=== PATIENT | female | born 1995 | race Caucasian/White ===

== ENCOUNTER 2017-10-07 07:25 | Emergency (ER) | payer SELFPAY ==
[2017-10-07 07:55] VITALS: BP 148/91
--- NOTE | 2017-10-07 08:38 | UC ---
Dizzy HPI HPI Summary: 22 yo female with intermittent vertigo x 4 days worse when supine increased with sudden change head position no KAHN no earache no sinus pressure or pain no ring or roaring in ears abd pain n/v only when supine normal appetite no UTI symptoms - History Of Current Complaint Chief Complaint: UCGI Stated Complaint: UPSET STOMACH/NAUSEA Time Seen by Provider: 10/07/17 07:51 Hx Obtained From: Patient Hx Last Menstrual Period: 2-3 weeks Onset/Duration: Sudden Onset, Lasting Days Timing: Minutes Severity Initially: Moderate Severity Currently: None Pain Intensity: 0 Pain Scale Used: 0-10 Numeric Character: Room Spinning Aggravating Factor(s): Position Change - worse when supine, Change In Head Position Alleviating Factor(s): Other - sitting/standing and staying still Associated Signs And Symptoms: Positive: Nausea, Vomiting - Allergies/Home Medications Allergies/Adverse Reactions: Allergies Allergy/AdvReac Type Severity Reaction Status Date / Time environmental Allergy Sneezing Uncoded 10/07/17 07:55 Home Medications: Home Medications Etonogestrel [Nexplanon] 68 mg IMPLANT DAILY 10/07/17 [History Confirmed ] White Allergy Tab 1 tab PO DAILY PRN 10/07/17 [History Confirmed 10/07/17] PMH/Surg Hx/FS Hx/Imm Hx Previously Healthy: Yes - Surgical History Surgical History: Yes Surgery Procedure, Year, and Place: wisdom teeth - Family History Known Family History: Positive: Unknown - state she does not know any of her FHx - Social History Alcohol Use: None Substance Use Type: None Smoking Status (MU): Never Smoked Tobacco Review of Systems Constitutional: Negative Skin: Negative Eyes: Negative ENT: Negative Respiratory: Negative Cardiovascular: Negative Gastrointestinal: Vomiting, Nausea Genitourinary: Negative Motor: Negative Neurovascular: Negative Musculoskeletal: Negative Neurological: Other - vertigo Psychological: Negative Is Patient Immunocompromised?: No All Other Systems Reviewed And Are Negative: Yes Physical Exam Triage Information Reviewed: Yes Appearance: Well-Appearing, No Pain Distress, Well-Nourished Vital Signs: Initial Vital Signs Temp 99.8 F 10/07/17 07:42 Pulse 107 10/07/17 07:42 Resp 24 10/07/17 07:42 BP 148/91 10/07/17 07:42 Pulse Ox 100 10/07/17 07:42 Vital Signs Reviewed: Yes Eyes: Positive: Conjunctiva Clear ENT: Positive: Hearing grossly normal, Pharynx normal, TMs normal, Uvula midline. Negative: Nasal congestion, Nasal drainage, Tonsillar swelling, Tonsillar exudate, Trismus, Muffled voice, Hoarse voice, Sinus tenderness Neck: Positive: Supple, Nontender, No Lymphadenopathy Respiratory: Positive: Lungs clear, Normal breath sounds, No respiratory distress, No accessory muscle use Cardiovascular: Positive: RRR, No Murmur Abdomen Description: Positive: Nontender, No Organomegaly Bowel Sounds: Positive: Present Musculoskeletal: Positive: ROM Intact, No Edema Neurological: Positive: Alert Psychological Exam: Normal Skin Exam: Normal Diagnostics - Laboratory Diagnostic Studies Completed/Ordered: UA ++++ ketones. UHCG (-) Dizzy Course/Dx - Course Course Of Treatment: advised not to drive until better - Differential Dx/Diagnosis Provider Diagnoses: benign paroxysmal postional vertigo Discharge - Sign-Out/Discharge Documenting (check all that apply): Discharge/Admit/Transfer - Discharge Plan Condition: Stable Disposition: HOME Prescriptions: Meclizine TAB* [Antivert TAB*] 25 mg PO QID #20 tab Patient Education Materials: Benign Paroxysmal Positional Vertigo (ED) Forms: *Work Release Referrals: Non Staff,Doctor [Primary Care Provider] - - Billing Disposition and Condition Condition: STABLE Disposition: HOME
== END 2017-10-07 09:04 | disposition home or self-care (01) ==
LOC: UCCORT 07:25
DX: H81.10 Benign paroxysmal vertigo, unspecified ear (principal); R11.2 Nausea with vomiting, unspecified; Z91.09 Other allergy status, other than to drugs and biological substances
CPT/HCPCS: 81003; 84702; 99202; G0463

== ENCOUNTER 2017-12-07 13:14 | Emergency (ER) | payer SELFPAY ==
[2017-12-07 13:55] VITALS: BP 99/72
--- NOTE | 2017-12-07 14:00 | UC ---
Skin Complaint HPI - HPI Summary HPI Summary: 22 y/o female presents to the urgent care c/o waking up yesterday morning w/ bites all over her left leg. Rash itches a lot. Pt denies being outside on Wednesday12/05/2017 and can't recall being bit by an insect. Her boy friend sleeps with her and he doesn't have any rash. Pt denies using new detergents or body lotions or taken a new medication. She also denies pain, fever, SOB, chest pain , abdominal pain, N/V/D. She has not taking anything to alleviate symptoms. - History of Current Complaint Chief Complaint: UCRash Time Seen by Provider: 12/07/17 13:59 Stated Complaint: SKIN COMPLAINT Hx Obtained From: Patient Hx Last Menstrual Period: 2-3 weeks ?: No Onset/Duration: Sudden Onset, Lasting Days - 2 days, Still Present Skin Exposure Onset/Duration: Days Ago - 2 days Timing: Constant Onset Severity: Moderate Current Severity: Moderate Pain Intensity: 0 Pain Scale Used: 0-10 Numeric Location: Discrete - left leg Character: Pruritus, Redness Aggravating Factor(s): Touch Alleviating Factor(s): Nothing Associated Signs & Symptoms: Positive: Rash. Negative: Difficulty Breathing, Fever, Chills, Hoarseness, Throat Tightening, Drainage, Tenderness Related History: Possible Reaction to: Insect - Allergy/Home Medications Allergies/Adverse Reactions: Allergies Allergy/AdvReac Type Severity Reaction Status Date / Time environmental Allergy Sneezing Uncoded 12/07/17 13:53 Review of Systems Constitutional: Negative Skin: Rash - left leg w/ a lot of itchiness Eyes: Negative ENT: Negative Respiratory: Negative Cardiovascular: Negative Gastrointestinal: Negative Genitourinary: Negative Motor: Negative Neurovascular: Negative Musculoskeletal: Negative Neurological: Negative Psychological: Negative Is Patient Immunocompromised?: No All Other Systems Reviewed And Are Negative: Yes PMH/Surg Hx/FS Hx/Imm Hx Previously Healthy: Yes - Pt denies PMHX - Surgical History Surgical History: Yes Surgery Procedure, Year, and Place: wisdom teeth - Family History Known Family History: Positive: Unknown - Pt denies FMHX - Social History Occupation: Employed Full-time Lives: With Family Alcohol Use: None Substance Use Type: None Smoking Status (MU): Never Smoked Tobacco - Immunization History Vaccination Up to Date: Yes Physical Exam - Summary Physical Exam Summary: Vital Signs Reviewed: Yes General: well developed, well nourished female sitting in the examining table w/ o any apparent distress. Eyes: Positive: Conjunctiva Clear - PERRLA, EOMI ENT: Positive: Normal ENT inspection, Hearing grossly normal, Pharynx normal, TMs normal Neck: Positive: Supple, Nontender, No Lymphadenopathy Respiratory: Positive: Chest nontender, Lungs clear, Normal breath sounds Cardiovascular: Positive: RRR, No Murmur, Pulses Normal Abdomen Description: Positive: Nontender, No Organomegaly, Soft. Negative: CVA Tenderness (R), CVA Tenderness (L) Bowel Sounds: Positive: Present Musculoskeletal: Positive: Strength Intact, ROM Intact, No Edema Neurological Exam: Normal Psychological Exam: Normal Skin: Positive: rashes - left leg w/ scattered erythematous papules about 3mm in size w/ signs of excoriations.non tender to palpation, no discharge observed Triage Information Reviewed: Yes Vital Signs: Initial Vital Signs Temp 98.3 F 12/07/17 13:50 Pulse 66 12/07/17 13:50 Resp 14 12/07/17 13:50 BP 99/72 12/07/17 13:50 Pulse Ox 100 12/07/17 13:50 Course/Dx - Course Course Of Treatment: 22 y/o female presents to the urgent care c/o waking up yesterday morning w/ bites all over her left leg. Rash itches a lot. Pt denies being outside on Wednesday12/05/2017 and can't recall being bit by an insect. Her boy friend sleeps with her and he doesn't have any rash. Pt denies using new detergents or body lotions or taken a new medication. She also denies pain, fever, SOB, chest pain, abdominal pain, N/V/D. She has not taking anything to alleviate symptoms.Hx obtained.Pt with a pruritic rash on examination, most likely insect bites. Pt Rx Hydrocortisone , Benadryl PO and Caladryl topical lotion to alleviate symptoms. If not resolution of symptoms in 3 days to f/u w/ PCP for further evaluation. Pt understood and agreed with plan of care. - Differential Diagnoses - Skin Complaint Differential Diagnoses: Abscess, Allergic Reaction, Contact Dermatitis, Eczema, Local Allergic Reaction, Poison [place], Poison [place], Scabies, Tick Born Illness, Urticaria - Diagnoses Provider Diagnoses: 1- Rash probably due to insect bites Discharge - Sign-Out/Discharge Documenting (check all that apply): Patient Departure - D/C home - Discharge Plan Condition: Stable Disposition: HOME Prescriptions: Calamine/Pramoxine LOTION* [Caladryl LOTION*] 1 applic .SEE ORDER BID #1 btl diPHENhydraMINE PO* [Benadryl PO 25 MG TAB*] 25 mg PO TID PRN #21 tab PRN Reason: pruritus Hydrocortisone 1% CREAM* [Hytone Cream 1%*] 1 applic TOPICAL BID #1 tube Patient Education Materials: Insect Bite or Sting (ED) Forms: *Work Release Referrals: [facility] [Outside] - If Needed Additional Instructions: 1- Use the hydrocortisone topical cream and Caladryl topical lotion as directed to alleviate itching. Avoid sun exposure. 2-Take Benadryl PO to alleviate itchiness. 3-If symptoms do not improve or worsen please f/u with your PCP in 3 days or return to the urgent care for further evaluation and treatment. - Billing Disposition and Condition Condition: STABLE Disposition: Home
== END 2017-12-07 14:21 | disposition home or self-care (01) ==
LOC: UCCORT 13:14
DX: R21 Rash and other nonspecific skin eruption (principal)
CPT/HCPCS: 99212; G0463

== ENCOUNTER 2018-07-07 07:55 | Emergency (ER) | payer OTHER ==
[2018-07-07 08:21] VITALS: BP 127/77
--- NOTE | 2018-07-07 08:34 | UC ---
Throat Pain/Nasal Jean Paul HPI - HPI Summary HPI Summary: sore throat x 3 days nasal congestion , productive cough with yellow sputum + fever, chills, body and joint pain - History of Current Complaint Chief Complaint: UCGeneralIllness Stated Complaint: ST,KAHN,ACHES Time Seen by Provider: 07/07/18 08:13 Hx Obtained From: Patient Hx Last Menstrual Period: 07/06/18 ?: No Onset/Duration: Gradual Onset, Lasting Days - 3, Still Present Severity: Moderate Pain Intensity: 7 Cough: Sputum Appears - yellow Associated Signs & Symptoms: Positive: Nasal Discharge, Fever. Negative: Dysphagia, Wheezing, Hoarseness, Sinus Discomfort, Vomiting, Rash - Allergies/Home Medications Allergies/Adverse Reactions: Allergies Allergy/AdvReac Type Severity Reaction Status Date / Time environmental Allergy Sneezing Uncoded 07/07/18 08:17 PMH/Surg Hx/FS Hx/Imm Hx Previously Healthy: Yes - Surgical History Surgical History: Yes Surgery Procedure, Year, and Place: wisdom teeth - Family History Known Family History: Positive: Unknown - Pt denies FMHX Negative: Diabetes - Social History Alcohol Use: None Substance Use Type: None Smoking Status (MU): Never Smoked Tobacco - Immunization History Vaccination Up to Date: Yes Review of Systems All Other Systems Reviewed And Are Negative: Yes Constitutional: Positive: Fever, Chills, Fatigue Skin: Positive: Negative Eyes: Positive: Negative ENT: Positive: Sore Throat Respiratory: Positive: Cough Cardiovascular: Positive: Negative Gastrointestinal: Positive: Negative Is Patient Immunocompromised?: No Physical Exam Triage Information Reviewed: Yes Appearance: Well-Appearing, No Pain Distress, Well-Nourished Vital Signs: Initial Vital Signs Temp 99.0 F 07/07/18 08:17 Pulse 114 07/07/18 08:17 Resp 18 07/07/18 08:17 BP 127/77 07/07/18 08:17 Pulse Ox 100 07/07/18 08:17 Vital Signs Reviewed: Yes Eye Exam: Normal Eyes: Positive: Conjunctiva Clear ENT: Positive: Normal ENT inspection, Hearing grossly normal, Pharynx normal, Nasal congestion. Negative: Pharyngeal erythema Neck: Positive: Supple, Nontender, No Lymphadenopathy Respiratory: Positive: Chest non-tender, Lungs clear, Normal breath sounds Cardiovascular: Positive: Tachycardia Abdominal Exam: Normal Abdomen Description: Positive: Nontender, Soft Bowel Sounds: Positive: Present Throat Pain/Nasal Course/Dx - Differential Dx/Diagnosis Provider Diagnosis: URI (upper respiratory infection) Discharge - Sign-Out/Discharge Documenting (check all that apply): Patient Departure All imaging exams completed and their final reports reviewed: No Studies - Discharge Plan Condition: Stable Disposition: HOME Patient Education Materials: Upper Respiratory Infection (DC) Forms: *Work Release Referrals: No Primary Care Phys,NOPCP [Primary Care Provider] - If Needed - Billing Disposition and Condition Condition: STABLE Disposition: Home
[2018-07-07 08:39] LABS: Influenza A Molecular NEGATIVE (Negative); Influenza B Molecular NEGATIVE (Negative)
== END 2018-07-07 08:45 | disposition home or self-care (01) ==
LOC: UCCORT 07:55
DX: J06.9 Acute upper respiratory infection, unspecified (principal)
CPT/HCPCS: 99211; G0463

== ENCOUNTER 2018-08-08 19:22 | Emergency (ER) | payer OTHER ==
[2018-08-08 20:23] VITALS: BP 111/71
--- NOTE | 2018-08-08 20:48 | UC ---
Throat Pain/Nasal Jean Paul HPI - HPI Summary HPI Summary: Sore throat for about 3 days. Denies any fever or chills. Patient's requesting a work note to go back to work tomorrow. - History of Current Complaint Chief Complaint: UCGeneralIllness Stated Complaint: SORE THROAT Time Seen by Provider: 08/08/18 20:13 Hx Obtained From: Patient Hx Last Menstrual Period: 07/13/18 ?: No Onset/Duration: Gradual Onset Severity: Mild Pain Intensity: 3 - Allergies/Home Medications Allergies/Adverse Reactions: Allergies Allergy/AdvReac Type Severity Reaction Status Date / Time environmental Allergy Sneezing Uncoded 08/08/18 20:18 Home Medications: Home Medications NK [No Home Medications Reported] 08/08/18 [History Confirmed 08/08/18] PMH/Surg Hx/FS Hx/Imm Hx Previously Healthy: Yes - Surgical History Surgical History: Yes Surgery Procedure, Year, and Place: wisdom teeth - Family History Known Family History: Positive: Unknown - Pt denies FMHX Negative: Diabetes - Social History Alcohol Use: Occasionally Substance Use Type: None Smoking Status (MU): Never Smoked Tobacco - Immunization History Vaccination Up to Date: Yes Review of Systems All Other Systems Reviewed And Are Negative: Yes ENT: Positive: Sore Throat Psychological: Positive: Negative Is Patient Immunocompromised?: No Physical Exam Triage Information Reviewed: Yes Appearance: Well-Appearing, No Pain Distress, Well-Nourished Vital Signs: Initial Vital Signs Temp 98.4 F 08/08/18 20:18 Pulse 85 08/08/18 20:18 Resp 22 08/08/18 20:18 BP 111/71 08/08/18 20:18 Pulse Ox 100 08/08/18 20:18 Vital Signs Reviewed: Yes Eye Exam: Normal ENT Exam: Normal ENT: Positive: Hearing grossly normal, Pharynx normal, Nasal congestion, TMs normal, Uvula midline. Negative: Trismus, Muffled voice, Hoarse voice Neck exam: Normal Respiratory Exam: Normal Cardiovascular Exam: Normal Abdominal Exam: Normal Bowel Sounds: Positive: Present Musculoskeletal Exam: Normal Neurological Exam: Normal Psychological Exam: Normal Skin Exam: Normal Throat Pain/Nasal Course/Dx - Course Course Of Treatment: Patient has been comfortable here, rapid strep test was negative. Is given a note for work. - Differential Dx/Diagnosis Differential Diagnosis/HQI/PQRI: Pharyngitis Provider Diagnosis: Pharyngitis Discharge - Sign-Out/Discharge Documenting (check all that apply): Patient Departure All imaging exams completed and their final reports reviewed: No Studies - Discharge Plan Condition: Good Disposition: HOME Patient Education Materials: Pharyngitis (ED) Forms: *Work Release Referrals: No Primary Care Phys,NOPCP [Primary Care Provider] - Additional Instructions: Please call [facility] at [phone] to get help establishing care with a primary care provider. Crease fluids, warm saltwater gargles, throat lozenges. Definite follow-up with your primary care provider in 3 or 4 days no improvement. - Billing Disposition and Condition Condition: GOOD Disposition: Home
== END 2018-08-08 21:02 | disposition home or self-care (01) ==
LOC: UCCORT 19:22
DX: J02.9 Acute pharyngitis, unspecified (principal); Z91.09 Other allergy status, other than to drugs and biological substances
CPT/HCPCS: 87651; 99211; G0463